=== PATIENT | female | born 2000 | race Caucasian/White ===

== ENCOUNTER 2021-04-09 14:26 | Emergency (ER) | payer MEDICAID ==
[~2021-04-09] VITALS: Ht 157.5 cm; Wt 50.0 kg
[2021-04-09] MEDS ORDERED: IBUPROFEN 600MG TABLET PO ONE (15:00)
[2021-04-09 15:30] VITALS: BP 110/74
[2021-04-09] MEDS ORDERED: IBUP-2029 MT (16:28)
== END 2021-04-09 16:45 | disposition home or self-care (01) ==
LOC: ER 14:26
DX: S20.219A Contusion of unspecified front wall of thorax, initial encounter (principal); J45.909 Unspecified asthma, uncomplicated; V43.52XA Car driver injured in collision with other type car in traffic accident, initial encounter; Y93.89 Activity, other specified; Y92.488 Other paved roadways as the place of occurrence of the external cause
CPT/HCPCS: 71045; 81025; 93005; 99283